=== PATIENT | male | born 1975 | race Caucasian/White ===

== ENCOUNTER 2020-04-01 08:18 | Outpatient (CLI) | payer MEDICAID | END 2020-04-01 23:59 | disposition home or self-care (01) | LOC: RAD 08:18 | PROVIDERS: ATTEND Nurse Practitioner | DX: I86.1 Scrotal varices (principal); N50.811 Right testicular pain | CPT/HCPCS: 76870 ==

== ENCOUNTER 2021-04-24 11:26 | Emergency (ER) | payer MEDICAID ==
--- NOTE | 2021-04-24 12:55 | NUR ---
PT TO ROOM FROM LOBBY.
[2021-04-24] MEDS ORDERED: DEXAMETHASONE 4 MG TABLET PO ONE (13:00)
[2021-04-24] MEDS ORDERED: SODIUM CHLORIDE FLUSH 10ML SYR IVF ONE (13:00)
[2021-04-24] MEDS ORDERED: SODIUM CHLORIDE 0.9% 1,000ML IVBOLUS ONE (13:00)
[2021-04-24] MEDS ORDERED: DEXAMETHASONE 4 MG TABLET ONE (13:21)
[2021-04-24 13:27] LABS: BASOPHILS % (AUTO) 1 % (0-1); EOSINOPHILS % (AUTO) 1 % (1-7); LYMPHOCYTES % (AUTO) 32 % (22-44); MEAN CORPUSCULAR HEMOGLOBIN 34.9 pg (27.5-34.5); MEAN CORPUSCULAR HGB CONC 35.2 g/dL (33.2-36.2); MEAN PLATELET VOLUME 8.1 fL (7.4-10.4); MONOCYTES % (AUTO) 10 % (2-9); NEUTROPHILS % (AUTO) 57 % (42-75); PLATELET COUNT 224 x10^3/uL (130-400); RED BLOOD COUNT 4.55 x10^6/uL (4.38-5.82); RED CELL DISTRIBUTION WIDTH 12.5 % (9.4-14.8)
--- NOTE | 2021-04-24 13:35 | NUR ---
DR. ALFARO AT BEDSIDE.
[2021-04-24 13:39] LABS: ANION GAP 4 mmol/L (5-15); CALCIUM 8.3 mg/dL (8.5-10.1); CHLORIDE 110 mmol/L (98-107)
[2021-04-24 13:41] LABS: CREATININE 0.79 mg/dL (0.7-1.3)
[2021-04-24] MEDS ORDERED: OMNIPAQUE 350 MG/ML, 100ML BOTTLE ONE (15:34)
--- NOTE | 2021-04-24 15:38 | NUR ---
PT BACK FROM CT. VSS. AWAITING CT RESULT.
--- NOTE | 2021-04-24 16:05 | NUR ---
DR. ALFARO AT BEDSIDE TO DISCUSS POC.
== END 2021-04-24 17:19 | disposition home or self-care (01) ==
LOC: ED 17:10
DX: J03.90 Acute tonsillitis, unspecified (principal); M54.2 Cervicalgia
CPT/HCPCS: 36415; 70491; 80048; 83605; 84145; 85025; 87040; 87081; 87880; 96360; 96361; 99285; J7030; Q9967